=== PATIENT | female | born 1970 | race Native Hawaiian/Other Pacific Islander ===

== ENCOUNTER 2018-03-27 11:47 | Emergency (ER) | payer OTHER ==
[~2018-03-27] VITALS: Ht 160 cm; Wt 78.0 kg
[2018-03-27 11:56] VITALS: TEMP 98.3
[2018-03-27] MEDS ORDERED: BUSP15TAB2 PO (12:15)
[2018-03-27] MEDS ORDERED: LISI20TA11 PO (12:16)
[2018-03-27] MEDS ORDERED: CELEXA40 MG PO (12:16)
[2018-03-27 13:56] VITALS: BP 132/98
== END 2018-03-27 13:57 | disposition home or self-care (01) ==
LOC: ED 11:47
DX: M25.532 Pain in left wrist (principal); M77.9 Enthesopathy, unspecified; G56.02 Carpal tunnel syndrome, left upper limb
CPT/HCPCS: 96372; 99282; J1885; L3908